=== PATIENT | female | born 1950 | race Caucasian/White ===

== ENCOUNTER 2018-08-14 15:04 | Inpatient (IN) | payer OTHER ==
[~2018-08-14] VITALS: Ht 157.5 cm; Wt 71.7 kg
[2018-08-14] MEDS ORDERED: ARICEPT10 MG PO (15:10)
[2018-08-14] MEDS ORDERED: OMEPRAZOLE PO (15:11)
[2018-08-23] MEDS ORDERED: COLACE100 MG PO (11:55)
[2018-08-23] MEDS ORDERED: NEURONTIN800 MG PO (11:56)
[2018-08-23] MEDS ORDERED: AMOX-CLAV 875-1 EACH PO (11:56)
[2018-08-23] MEDS ORDERED: CLONAZEPAM0.5 M1 PO (11:57)
[2018-08-23] MEDS ORDERED: PERCOCET 5-3251 EACH PO (11:57)
== END 2018-08-24 17:52 | disposition home or self-care (01) | DRG 460 ==
LOC: O/R 08-23 05:55 → SURG 08-23 05:55 → SURH 08-23 13:00 → SURG 08-24 10:37
PROVIDERS: ADMIT Orthopaedic Surgery Orthopaedic Surgery of the Spine
PROC: 0SG00AJ Fusion of Lumbar Vertebral Joint with Interbody Fusion Device, Posterior Approach, Anterior Column, Open Approach (ICD-10-PCS; 2018-08-23)
PROC: 0ST20ZZ Resection of Lumbar Vertebral Disc, Open Approach (ICD-10-PCS; 2018-08-23)
PROC: 07DS3ZZ Extraction of Vertebral Bone Marrow, Percutaneous Approach (ICD-10-PCS; 2018-08-23)
PROC: 0SG00A0 Fusion of Lumbar Vertebral Joint with Interbody Fusion Device, Anterior Approach, Anterior Column, Open Approach (ICD-10-PCS; principal; 2018-08-23 13:00)
DX: M47.26 Other spondylosis with radiculopathy, lumbar region (principal); M51.16 Intervertebral disc disorders with radiculopathy, lumbar region; M43.16 Spondylolisthesis, lumbar region